=== PATIENT | female | born 1980 ===

== ENCOUNTER 2022-08-04 08:00 | Day surgery (SDC) | payer OTHER ==
[~2022-08-04] VITALS: Ht 175.3 cm; Wt 89.4 kg
[~2022-08-04 08:00] MED LIST: PREVAC PO; PREVACID15 M1 PO
[2022-08-04] MEDS ORDERED: MORGIDOX100 MG PO (10:55)
[2022-08-04] MEDS ORDERED: NAPR500T14 PO (10:55)
== END 2022-08-04 15:45 | disposition home or self-care (01) ==
LOC: CIR.AMB 08:00
PROVIDERS: ATTEND Obstetrics & Gynecology
DX: N84.0 Polyp of corpus uteri (principal); N72 Inflammatory disease of cervix uteri; N88.8 Other specified noninflammatory disorders of cervix uteri; Z20.822 Contact with and (suspected) exposure to COVID-19; Z86.16 Personal history of COVID-19